=== PATIENT | female | born 1990 | race Caucasian/White ===

== ENCOUNTER 2024-11-13 12:06 | Outpatient (CLI) | payer OTHER, SELFPAY ==
[2024-11-19 05:12] LABS: HPV Source Cervical; HPV, High Risk by TMA Not Detected
== END 2024-11-13 12:07 | disposition home or self-care (01) ==
PROVIDERS: Visit Provider Obstetrics & Gynecology
DX: Z12.4 Encounter for screening for malignant neoplasm of cervix (principal); Z11.51 Encounter for screening for human papillomavirus (HPV)
CPT/HCPCS: 87624; 87625; 88141; 88142

== ENCOUNTER 2024-11-21 15:48 | Outpatient (CLI) | payer OTHER, SELFPAY ==
--- NOTE | 2024-11-21 16:00 | CRLHL7_ITS ---
For Patients: As a result of the Century Cures Act, medical imaging exams and procedure reports are released immediately into your electronic medical record. You may view this report before your referring provider. If you have questions, please contact your health care provider. CLINICAL HISTORY: Pelvic pain COMPARISON: None. TECHNIQUE: 2D whiting-scale ultrasound. In addition, color Doppler and spectral Doppler analysis was performed of the pelvis using a transabdominal and transvaginal approach. Transvaginal imaging performed to better visualize the endometrial stripe and ovaries. FINDINGS: The uterus measures 9.5 x 4.6 x 5.8 cm. No uterine fibroid. The endometrial lining measures 9.2 mm in thickness. section scar noted. The right ovary measures 3.4 x 1.3 x 2.3 cm in size and the left ovary measures 4.3 x 2.2 x 2.8 cm. The ovaries demonstrate normal arterial and venous blood flow on color Doppler and spectral Doppler analysis. There are no suspicious fluid collections within the cul-de-sac. Complex left ovarian cyst is present which measures 2.2 x 1.8 x 2.1 cm. This appear solid like components with internal vascularity. Central fluid noted with hypoechoic echotexture. IMPRESSION: Complex left ovarian cyst with some internal vascularity measuring 2.2 cm, MRI recommended. Dictated by Magno Younger MD @ 11/25/2024 7:15:12 AM (Electronically Signed)
== END 2024-11-21 15:49 | disposition home or self-care (01) ==
LOC: US 15:49
PROVIDERS: Visit Provider Obstetrics & Gynecology
DX: R10.2 Pelvic and perineal pain (principal); N83.292 Other ovarian cyst, left side
CPT/HCPCS: 76830; 76856; 93976

== ENCOUNTER 2025-01-05 15:51 | Outpatient (CLI) | payer OTHER, SELFPAY ==
--- NOTE | 2025-01-05 16:00 | CRLHL7_ITS ---
For Patients: As a result of the Century Cures Act, medical imaging exams and procedure reports are released immediately into your electronic medical record. You may view this report before your referring provider. If you have questions, please contact your health care provider. INDICATION: Unspecified ovarian cyst, left side COMPARISON: 11/21/2024 TECHNIQUE: 2D whiting-scale and color Doppler images were acquired of the pelvis using a transabdominal and transvaginal approach. Transvaginal imaging performed to better visualize the endometrial stripe and ovaries. FINDINGS: Sonographic images demonstrate a normal size and smooth outer contour of the uterus. Uterus measures 8.9 cm in length by 4.1 cm in AP diameter by 5.7 cm in transverse dimension. The myometrium has a normal uniform echotexture. The endometrial lining appears normal and measures 2 mm in composite thickness. The right ovary measures 3.6 x 1.9 x 2.5 cm in size and the left ovary measures 2.9 x 1.8 x 2.3 cm. The ovaries demonstrate normal arterial and venous blood flow on color Doppler analysis. There are no suspicious fluid collections within the cul-de-sac. IMPRESSION: Resolution of the previously noted left ovarian cyst. Dictated by Magno Younger MD @ 01/06/2025 6:45:33 AM (Electronically Signed)
== END 2025-01-05 15:52 | disposition home or self-care (01) ==
LOC: US 15:51
PROVIDERS: Visit Provider Obstetrics & Gynecology
DX: N83.202 Unspecified ovarian cyst, left side (principal)
CPT/HCPCS: 76830; 76856